=== PATIENT | female | born 1995 | race Caucasian/White ===

== ENCOUNTER 2021-08-13 11:55 | Inpatient (IN) | payer OTHER ==
[2021-08-13 13:26] LABS: BASO % 0.2 % (0-2.0); EOS % 1.1 % (0-4.5); HEMATOCRIT 38.8 % (32.4-45.2); HEMOGLOBIN 13.1 GM/dL (10.7-15.3); MCH 32.5 pg (25.7-33.7); MCHC 33.8 g/dl (32.0-36.0); MEAN CELL VOLUME 96.3 fl (80-96); MEAN PLT VOLUME 9.5 fl (7.5-11.1); MONO % 6.3 % (3.8-10.2); NEUT % 74.4 % (42.8-82.8); PLATELET COUNT 215 10^3/uL (134-434); RBC 4.03 M/mm3 (3.60-5.2); RDW 13.1 % (11.6-15.6); WHITE BLOOD COUNT 11.3 K/mm3 (4.0-10.0)
[2021-08-13 13:32] LABS: INR 0.94 (0.83-1.09); PROTHROMBIN TIME (PATIENT) 10.8 SEC (9.7-13.0)
[2021-08-13 13:35] LABS: ACTIVATED PTT 31.6 SECONDS (25.2-36.5)
[2021-08-13 13:39] LABS: BLOOD UREA NITROGEN 7.7 mg/dL (7-18)
[2021-08-13 13:43] LABS: CREATININE 0.6 mg/dL (0.55-1.3)
[2021-08-13 15:08] VITALS: BMI 29.6
[2021-08-13] MEDS ORDERED: AMPICILLIN - 2 GM in SODIUM CHLORIDE 100 ML IVPB ONE (16:00)
[2021-08-13] MEDS: ELECTROLYTE-148 SOLN 1,000 ML IV SCH (17:00)
[2021-08-13] MEDS ORDERED: AMPICILLIN SODIUM 2 GM VIAL ONE (17:44)
[2021-08-13] MEDS ORDERED: OXYTOCIN 30 UNITS in 0.9% NS 30 UNIT/500 ML INFUS.BAG IVPB ONE (19:17)
[2021-08-13] MEDS ORDERED: OXYTOCIN 30 UNITS in 0.9% NS 30 UNIT/500 ML INFUS.BAG IVPB SCH (19:20)
[2021-08-13] MEDS ORDERED: FENTANYL/BUPIVACAINE/NS/PF - PCEA - 50 ML DISP.SYRIN EP ONE ×2 (20:59→23:56)
[2021-08-13] MEDS ORDERED: BUPIVACAINE HCL/PF 0.25% (2.5MG/ML) 10 ML VIAL ONE (21:06)
[2021-08-13] MEDS: FENTANYL/BUPIVACAINE/NS/PF - PCEA - 50 ML DISP.SYRIN EP SCH (21:25)
[2021-08-13] MEDS ORDERED: NALOXONE HCL 0.4 MG/ML VIAL IVPUSH PRN (21:27)
[2021-08-13] MEDS: AMPICILLIN - 1 GM in SODIUM CHLORIDE 100 ML IVPB SCH (22:00)
[2021-08-13] MEDS ORDERED: AMPICILLIN SODIUM 1 GM VIAL ONE (22:01)
[2021-08-14] MEDS ORDERED: OXYTOCIN 20 UNITS in 0.9% NS 20 UNIT/1,000 ML INFUS.BAG IV ONE (01:15)
[2021-08-14] MEDS ORDERED: LIDOCAINE HCL 1% PRESERVATIVE FREE - 30ML VIAL ONE (01:16)
[2021-08-14] MEDS: AMPICILLIN - 1 GM in SODIUM CHLORIDE 100 ML IVPB SCH (01:45)
[2021-08-14] MEDS ORDERED: AMPICILLIN SODIUM 1 GM VIAL ONE (01:47)
[2021-08-14] MEDS ORDERED: BISACODYL 10 MG SUPP.RECT RC PRN (03:24)
[2021-08-14] MEDS ORDERED: ACETAMINOPHEN 325 MG TABLET (FP) PO PRN (03:24)
[2021-08-14] MEDS ORDERED: METHYLERGONOVINE MALEATE 0.2 MG/1 ML AMP IM PRN (03:24)
[2021-08-14] MEDS ORDERED: WITCH HAZEL 50% (TUCKS) 40 PAD/JAR PAD TP PRN (03:24)
[2021-08-14] MEDS ORDERED: BENZOCAINE 28 GM HEMORRHOIDAL OINTMENT TP PRN (03:24)
[2021-08-14] MEDS ORDERED: BENZOCAINE 20% 57 GM BOTTLE TP PRN (03:24)
[2021-08-14] MEDS ORDERED: oxyCODONE HCL 5 MG TABLET PO PRN (03:24)
[2021-08-14] MEDS ORDERED: IBUPROFEN 600 MG TABLET (FP) PO PRN (03:24)
[2021-08-14] MEDS ORDERED: OXYTOCIN 20 UNITS in 0.9% NS 20 UNIT/1,000 ML INFUS.BAG IV SCH (03:30)
[2021-08-14 04:14] LABS: MCH 33.1 pg (25.7-33.7); MCHC 34.4 g/dl (32.0-36.0); MEAN CELL VOLUME 96.1 fl (80-96); MEAN PLT VOLUME 8.9 fl (7.5-11.1); PLATELET COUNT 246 10^3/uL (134-434); RBC 3.64 M/mm3 (3.60-5.2); RDW 13.2 % (11.6-15.6)
[2021-08-14 06:41] LABS: ANISOCYTOSIS 1+; MACROCYTOSIS 1+
[2021-08-14] MEDS: FENTANYL/BUPIVACAINE/NS/PF - PCEA - 50 ML DISP.SYRIN EP SCH (23:54)
[2021-08-15 09:09] LABS: BASO % 0.3 % (0-2.0); EOS % 1.1 % (0-4.5); HEMATOCRIT 25.5 % (32.4-45.2); HEMOGLOBIN 8.6 GM/dL (10.7-15.3); LYMPH % 22.9 % (8-40); MCH 32.8 pg (25.7-33.7); MCHC 33.6 g/dl (32.0-36.0); MEAN CELL VOLUME 97.4 fl (80-96); MEAN PLT VOLUME 9.3 fl (7.5-11.1); MONO % 6.1 % (3.8-10.2); NEUT % 69.6 % (42.8-82.8); PLATELET COUNT 195 10^3/uL (134-434); RBC 2.61 M/mm3 (3.60-5.2); RDW 13.2 % (11.6-15.6); WHITE BLOOD COUNT 12.7 K/mm3 (4.0-10.0)
[2021-08-15] MEDS: ELECTROLYTE-148 SOLN 1,000 ML IV SCH (17:00)
[2021-08-15] MEDS: PRENATAL VITAMINS W/ FOLIC ACID TABLET (FP) PO SCH (21:35)
[2021-08-15] MEDS: FERROUS SO4 325 MG TABLET (FP) PO SCH ×2 (21:36→21:40)
[2021-08-15 21:58] VITALS: TEMP 98.1
[2021-08-15] MEDS ORDERED: SENNOSIDES/DOCUSATE COMBO (SENNA PLUS) TABLET (UD) PO PRN (22:00)
[2021-08-16] MEDS: PRENATAL VITAMINS W/ FOLIC ACID TABLET (FP) PO SCH (09:37)
[2021-08-16] MEDS: FERROUS SO4 325 MG TABLET (FP) PO SCH (09:37)
[2021-08-16 09:46] VITALS: BP 116/65; PULSE 91
[2021-08-16 13:12] LABS: POC NITRAZINE POS
== END 2021-08-16 12:25 | disposition home or self-care (01) | DRG 560 ==
LOC: JLDR 11:55 → J3W 08-14 05:43
PROVIDERS: ADMIT Specialist; ATTEND Specialist
PROC: 10E0XZZ Delivery of Products of Conception, External Approach (ICD-10-PCS; principal; 2021-08-14)
PROC: 0W8NXZZ Division of Female Perineum, External Approach (ICD-10-PCS; 2021-08-14)
PROC: 0UBGXZZ Excision of Vagina, External Approach (ICD-10-PCS; 2021-08-14)
DX: O42.92 Full-term premature rupture of membranes, unspecified as to length of time between rupture and onset of labor (principal); Z3A.37 37 weeks gestation of pregnancy; Z37.0 Single live birth
CPT/HCPCS: 36415; 59409; 80048; 83986-QW; 85025; 85610; 85730; 86780; 86850; 86900; 86901; 88302-TC; 88307-TC; C9803-CS; U0003; U0005

== ENCOUNTER 2021-11-06 16:06 | Emergency (ER) | payer OTHER ==
[2021-11-06 16:30] VITALS: BP 118/66; PULSE 81; RESP 19; TEMP 98.1; BMI 24.0
== END 2021-11-06 18:36 | disposition home or self-care (01) ==
LOC: JERFT 16:06
DX: M79.89 Other specified soft tissue disorders (principal)
CPT/HCPCS: 99282-25